=== PATIENT | male | born 1985 | race African-American/Black ===

== ENCOUNTER 2016-12-10 01:49 | Emergency (ER) | payer SELFPAY ==
[~2016-12-10] VITALS: Ht 182.9 cm; Wt 128.0 kg
[~2016-12-10 01:49] MED LIST: AMOX500C PO; MOTR200T PO
[2016-12-10 02:08] VITALS: PULSE 87; RESP 18; TEMP 97.9; O2SAT 98
[2016-12-10 02:09] VITALS: BP 161/94
[2016-12-10 02:44] LABS: AUTOMATED NEUTROPHIL # 3.9 TH/MM3 (1.8-7.7); BASOPHIL # 0.1 TH/MM3 (0-0.2); BASOPHIL % 0.6 % (0.0-2.0); EOSINOPHIL # 0.2 TH/MM3 (0-0.4); EOSINOPHIL % 1.9 % (0.0-4.0); HEMATOCRIT 43.5 % (39.0-51.0); HEMO FLAGS DIFF FINAL; LYMPH % 41.7 % (9.0-44.0); LYMPHOCYTE # 3.5 TH/MM3 (1.0-4.8); MEAN CELL VOLUME 87.3 FL (80.0-100.0); MEAN CORPUSCULAR HEMOGLOBIN 29.6 PG (27.0-34.0); MEAN CORPUSCULAR HGB CONC 33.9 % (32.0-36.0); MONO % 9.5 % (0.0-8.0); NEUT % 46.3 % (16.0-70.0); PLATELET COUNT 255 TH/MM3 (150-450); RED BLOOD COUNT 4.98 MIL/MM3 (4.50-5.90); RED CELL DISTRIBUTION WIDTH 13.8 % (11.6-17.2); WHITE BLOOD COUNT 8.5 TH/MM3 (4.0-11.0)
--- NOTE | 2016-12-10 03:08 | RADRPT ---
EXAM DATE/TIME: 12/10/2016 02:51 [place] COMPARISON: CHEST SINGLE AP, January 26, 2013, 1:30. INDICATIONS : Anxiety related chest pain that resolved. MEDICAL HISTORY : None. SURGICAL HISTORY : None. ENCOUNTER: Initial ACUITY: 1 day PAIN SCORE: 0/10 LOCATION: Bilateral chest FINDINGS: A single view of the chest demonstrates the lungs to be symmetrically aerated without evidence of mas s, infiltrate or effusion. The cardiomediastinal contours are unremarkable. Osseous structures are intact. CONCLUSION: Normal examination. Juan Bello Jr., MD on December 10, 2016 at 3:07 Board Certified Radiologist. This report was verified electronically.
[2016-12-10 03:17] LABS: ANION GAP 9 MEQ/L (5-15); BICARBONATE 26.5 MEQ/L (21.0-32.0); BLOOD UREA NITROGEN 17 MG/DL (7-18); CHLORIDE 103 MEQ/L (98-107); CREATINE KINASE 434 U/L (39-308); GLOMERULAR FILTRATION RATE 51 ML/MIN (>89); POTASSIUM 3.7 MEQ/L (3.5-5.1); SODIUM (NA) 138 MEQ/L (136-145)
--- NOTE | 2016-12-10 03:24 | PD ---
HPI Chief Complaint: Anxiety Time Seen by Provider: 02:01 Travel History International Travel<30 days: No Contact w/Intl Traveler<30days: No Traveled to known affect area: No History of Present Illness HPI The patient is a 31 year old male who presents to the [facility] emergency department with a history of chest tightness, shortness of breath, leg shaking that began at approximately 1 AM. He reports that he was smoking weed in his car when it began. He reports that he's never had anything like this happen previously. He reports that he felt anxious. He reports that he fell gets heart was racing. Since arriving in the emergency department, his symptoms have resolved. The patient did come in by ambulance services. The patient reports that over the last year he has been using cocaine on a regular basis. He reports that he became anxious when he read about some of the consequences of cocaine use. He reports that he tried using marijuana to substitute for the cocaine today. The patient reports that he last used cocaine yesterday. He denies any prior history of heart disease. The patient denies any recent fevers , cough, congestion, neck pain, chest pain, shortness of breath, abdominal pain , vomiting, diarrhea, urinary symptoms, or neurologic symptoms. PFSH Past Medical History Narrative Medical The patient's past medical history is significant for asthma, history of a pneumothorax, history of cocaine use Asthma: Yes Diminished Hearing: No Respiratory: Yes (HX PNEUMOTHORAX) ?: Not Past Surgical History Narrative Surgical The patient denies any past surgical history. Surgical History: No Previous Surgery Social History Alcohol Use: No Tobacco Use: Yes (1/2 PPD) Substance Use: No Allergies-Medications (Allergen,Severity, Reaction): Coded Allergies: Bee Sting (Verified Allergy, Severe, Anaphylaxis, 12/10/16) Reported Meds & Prescriptions Reported Meds & Active Scripts Active Review of Systems Except as stated in HPI: all other systems reviewed are Neg General / Constitutional: No: Fever Eyes: No: Visual changes HENT: No: Headaches Cardiovascular: Positive: Chest Pain or Discomfort, Palpitations Respiratory: Positive: Shortness of Breath Gastrointestinal: No: Nausea, Vomiting, Diarrhea, Abdominal Pain Genitourinary: No: Dysuria Musculoskeletal: No: Pain Skin: No Rash Neurologic: No: Weakness Psychiatric: No: Depression Endocrine: No: Polydipsia Hematologic/Lymphatic: No: Easy Bruising Physical Exam Narrative General: The patient is a well-developed well-nourished male in no acute distress. Head and Neck exam: Head is normocephalic atraumatic. Eyes: EOMI, pupils are equal round and reactive to light. Nose: Midline septum with pink mucous membranes Mouth: Dentition unremarkable. Moist mucus membranes. Posterior oropharynx is not erythematous. No tonsillar hypertrophy. Uvula midline. Airway patent. Neck: No palpable lymphadenopathy. No nuchal rigidity. No thyromegaly. Cardiovascular: Regular rate and rhythm without murmurs, gallops, or rubs. No pulse deficit to the extremities and simultaneous auscultation and palpation of his radial artery. Lungs: Clear to auscultation bilaterally. No wheezes, rhonchi, or rales. Abdomen: Soft, without tenderness to palpation in all 4 quadrants of the abdomen. No guarding, rebound, or rigidity. Normal bowel sounds are audible. No tenderness on palpation of McBurney's point. Extremities: No clubbing, cyanosis, or edema. 2+ pulses in all 4 extremities. No calf tenderness on palpation. Back: No spinous process tenderness to palpation. No costovertebral angle tenderness to palpation. Neurologic Exam: Grossly nonfocal. Skin Exam: No rash noted. Intact skin that is warm and dry. Data Data Last Documented VS Vital Signs Date Time Temp Pulse Resp B/P Pulse Ox O2 Delivery O2 Flow Rate FiO2 12/10/16 02:09 161/94 12/10/16 02:08 97.9 87 18 98 Room Air Orders Electrocardiogram (12/10/16 02:31) Complete Blood Count With Diff (12/10/16 02:31) Basic Metabolic Panel (Bmp) (12/10/16 02:31) Creatine Kinase (Cpk) (12/10/16 02:31) Ckmb (Isoenzyme) Profile (12/10/16 02:31) Troponin I (12/10/16 02:31) Chest, Single Ap (12/10/16 02:31) Iv Access Insert/Monitor (12/10/16 02:31) Ecg Monitoring (12/10/16 02:31) Oximetry (12/10/16 02:31) Drug Screen, Random Urine (12/10/16 02:31) Alcohol (Ethanol) (12/10/16 02:31) Thyroid Stimulating Hormone (12/10/16 02:31) CKMB (12/10/16 02:40) CKMB% (12/10/16 02:40) Sodium Chlor 0.9% 1000 Ml Inj (Ns 1000 M (12/10/16 04:15) Labs Laboratory Tests Test 12/10/16 02:40 White Blood Count 8.5 TH/MM3 Red Blood Count 4.98 MIL/MM3 Hemoglobin 14.7 GM/DL Hematocrit 43.5 % Mean Corpuscular Volume 87.3 FL Mean Corpuscular Hemoglobin 29.6 PG Mean Corpuscular Hemoglobin 33.9 % Concent Red Cell Distribution Width 13.8 % Platelet Count 255 TH/MM3 Mean Platelet Volume 8.6 FL Neutrophils (%) (Auto) 46.3 % Lymphocytes (%) (Auto) 41.7 % Monocytes (%) (Auto) 9.5 % Eosinophils (%) (Auto) 1.9 % Basophils (%) (Auto) 0.6 % Neutrophils # (Auto) 3.9 TH/MM3 Lymphocytes # (Auto) 3.5 TH/MM3 Monocytes # (Auto) 0.8 TH/MM3 Eosinophils # (Auto) 0.2 TH/MM3 Basophils # (Auto) 0.1 TH/MM3 CBC Comment DIFF FINAL Differential Comment Sodium Level 138 MEQ/L Potassium Level 3.7 MEQ/L Chloride Level 103 MEQ/L Carbon Dioxide Level 26.5 MEQ/L Anion Gap 9 MEQ/L Blood Urea Nitrogen 17 MG/DL Creatinine 1.87 MG/DL Estimat Glomerular Filtration 51 ML/MIN Rate Random Glucose 142 MG/DL Calcium Level 8.5 MG/DL Total Creatine Kinase 434 U/L Creatine Kinase MB 4.2 NG/ML Creatine Kinase MB % 1.0 % Troponin I LESS THAN 0.02 NG/ML Thyroid Stimulating Hormone 1.620 uIU/ML 3rd Gen Ethyl Alcohol Level LESS THAN 3 MG/DL MDM Medical Decision Making Medical Screen Exam Complete: Yes Emergency Medical Condition: Yes Medical Record Reviewed: Yes Interpretation(s) Last Impressions Chest X-Ray 12/10/16 0231 Signed Impressions: Service Date/Time: Saturday, December 10, 2016 02:51 - CONCLUSION: Normal examination. Juan Bello Jr., MD Differential Diagnosis Endocrine abnormalities such as hyperthyroid disorder, versus anxiety disorder, versus pneumothorax, versus acute coronary syndrome Narrative Course During the course of the patients emergency department visit, the patients history, examination, and differential diagnosis were reviewed with the patient. The patient had IV access obtained and blood work sent for analysis. The patient states on a quality assurance monitor final with oximetry and blood pressure monitoring. An EKG was done on arrival. The patient's EKG shows a sinus rhythm with a heart rate of 70, no acute ST segment elevation or depression, nonspecific T-wave abnormality. The patient was initially provided normal saline 1 L IV fluid bolus. The patients laboratory studies were reviewed and remarkable for a white count of 8.5, hemoglobin 14.7, platelets 255 with 9.5 monocytes, BMP is remarkable for a creatinine of 1.87, glucose 142, CPK 432, MB percent 1, troponin I less than 0.02, TSH 1.62, alcohol level is less than 3 Radiology studies were reviewed and remarkable for a chest x-ray that shows no acute abnormality. The patient is currently asymptomatic. The patient is encouraged to avoid marijuana and cocaine. The patient is resting comfortably and feels better, is alert and in no distress. The patients results and examination findings were discussed with the patient. The repeat examination is unremarkable and benign. The history, exam, diagnostic testing, and current condition do not suggest any significant pathology to warrant further testing, continued ED treatment, admission, or surgical evaluation at this point. The vital signs have been stable. The patient does not have uncontrollable pain, intractable vomiting, or other significant symptoms. The patient's condition is stable and appropriate for discharge. The patient will pursue further outpatient evaluation with a primary care physician or other designated or consulting physician as indicated in the discharge instructions. The patient expressed understanding and was agreeable with this plan. Diagnosis Primary Impression: Palpitations Referrals: Primary Care Physician 2 days Patient Instructions: General Instructions, Palpitations (ED), Polysubstance Abuse (ED) Additional Instructions: Avoid marijuana and cocaine Disposition: 01 DISCHARGE HOME Condition: Stable Yasmin White MD December 10, 2016 03:24
[2016-12-10 03:30] LABS: CKMB 4.2 NG/ML (0.5-3.6)
[2016-12-10] MEDS ORDERED: SODIUM CHLOR 0.9% 1000 ML INJ 1,000 ML IV ONE (04:15)
--- NOTE | 2016-12-10 11:14 | EKG ---
Date Performed: 12/10/2016 Time Performed: 04:12:27 PTAGE: 31 years EKG: Sinus rhythm WITH FIRST DEGREE AV BLOCK NONSPECIFIC T-WAVE ABNORMALITY ABNORMAL ECG PREVIOUS TRACING : 01/26/2013 01.09 DOCTOR: Rafa Seth Interpretating Date/Time 12/10/2016 11:12:39
== END 2016-12-10 05:47 | disposition home or self-care (01) ==
LOC: NEPE 01:49
DX: R00.2 Palpitations (principal); F17.210 Nicotine dependence, cigarettes, uncomplicated; F14.10 Cocaine abuse, uncomplicated; F12.10 Cannabis abuse, uncomplicated; R94.31 Abnormal electrocardiogram [ECG] [EKG]
CPT/HCPCS: 71010; 80048; 80307; 82550; 82552; 84443; 84484; 85025; 93005; 99285; J7030

== ENCOUNTER 2017-04-20 00:52 | Emergency (ER) | payer SELFPAY ==
[~2017-04-20] VITALS: Ht 193 cm; Wt 118.9 kg
[2017-04-20 00:57] VITALS: BP 139/86; PULSE 74; RESP 14; TEMP 98.7; O2SAT 99
--- NOTE | 2017-04-20 02:56 | PD ---
HPI Chief Complaint: Lump, Cyst, Hernia Time Seen by Provider: 02:49 Travel History International Travel<30 days: No Contact w/Intl Traveler<30days: No Traveled to known affect area: No History of Present Illness HPI The patient is a 32-year-old male that noticed 2 days ago a minimally painful lump over the right pectoral muscle. It is not inflamed around the area. He has no other similar lumps on his body. He denies any significant trauma to the area other than his [id number] on him "playing around" sometimes. He could have gotten punched in that area. PFSH Past Medical History Asthma: Yes Diminished Hearing: No Respiratory: Yes (HX PNEUMOTHORAX) Tetanus Vaccination: < 5 Years Influenza Vaccination: No ?: Not Past Surgical History Surgical History: No Previous Surgery Social History Alcohol Use: No Tobacco Use: Yes (1/2 PPD) Substance Use: No Allergies-Medications (Allergen,Severity, Reaction): Coded Allergies: bee venom protein (honey bee) (Unverified Allergy, Severe, Anaphylaxis, ) Reported Meds & Prescriptions Reported Meds & Active Scripts Active No Active Prescriptions or Reported Medications Review of Systems Except as stated in HPI: all other systems reviewed are Neg Physical Exam Narrative GENERAL: Well-nourished, well-developed patient. His vital signs are normal. SKIN: Focused skin assessment warm/dry. There is a small 1/2 cm lump, poorly defined beneath a tattoo on the right pectoralis muscle. It is minimally tender and there is no erythema or blackhead in the area. No ecchymoses or discoloration is noted other than the tattoo. HEAD: Normocephalic. EYES: No scleral icterus. No injection or drainage. NECK: Supple, trachea midline. No JVD or lymphadenopathy. CARDIOVASCULAR: Regular rate and rhythm without murmurs, gallops, or rubs. RESPIRATORY: Breath sounds equal bilaterally. No accessory muscle use. GASTROINTESTINAL: Abdomen soft, non-tender, nondistended. MUSCULOSKELETAL: No cyanosis, or edema. BACK: Nontender without obvious deformity. No CVA tenderness. Data Data Last Documented VS Vital Signs Date Time Temp Pulse Resp B/P (MAP) Pulse Ox O2 Delivery O2 Flow Rate FiO2 04/20/17 00:57 98.7 74 14 139/86 (103) 99 MDM Medical Decision Making Medical Screen Exam Complete: Yes Emergency Medical Condition: Yes Medical Record Reviewed: Yes Differential Diagnosis Sebaceous cyst, breast cancer-highly unlikely, blood clot, hematoma, lump etiology undetermined. Narrative Course The patient has a lump etiology undetermined. He is told to keep an eye on the lump to make sure that it doesn't rapidly grow in size in the next month or 2. If this happens he should see a subway operator. Additional Instructions: If this will grows rapidly in size in the next month he will need to see an expert, a subway operator. For now you can try warm compresses and see if this will cause it to go away. A heating pad, turned on its lowest setting and interposing a towel between the pad and your skin also is acceptable. Scripts No Active Prescriptions or Reported Meds Disposition: 01 DISCHARGE HOME Condition: Brayan Strickland MD Apr 20, 2017 02:56
== END 2017-04-20 03:13 | disposition home or self-care (01) ==
LOC: PHED 00:52
DX: L98.9 Disorder of the skin and subcutaneous tissue, unspecified (principal)
CPT/HCPCS: 99282